=== PATIENT | female | born 1995 | race Caucasian/White ===

== ENCOUNTER → 2018-05-06 10:19 | Outpatient (CLI) | payer OTHER, SELFPAY ==
[2018-05-06 12:35] LABS: Cholesterol 137 mg/dL (200); Glucose 78 mg/dL (74-106); High Density Lipoprotein 36 mg/dL; Thyroid Stim Hormone (TSH) 1.58 uIU/mL (0.358-3.74); Triglycerides 137 mg/dL; Very Low Density Lipoprotein 27 mg/dL (5-40)
== END ==
PROVIDERS: Family Provider Family Medicine; PCP Family Medicine; Visit Provider Family Medicine
DX: E66.9 Obesity, unspecified (principal); Z13.220 Encounter for screening for lipoid disorders
CPT/HCPCS: 36415; 80061; 82947; 84443

== ENCOUNTER 2019-01-01 11:00 | Day surgery (SDC) | payer OTHER, SELFPAY ==
[2018-12-25 17:11] LABS: Hematocrit 39.2 % (37-47); Hemoglobin 12.6 g/dl (12.0-15.0); Mean Corp Hgb Conc 32.1 g/gl (32-36); Mean Corpuscular Hgb 26.8 pg (27.0-32.0); Mean Corpuscular Volume 83.2 fL (81-99); Mean Platelet Vol. 10.3 fl (6.2-12.0); Platelet Count 396 K/mm3 (150-450); RBC Distribution Width CV 14.7 % (11.6-14.6); RBC Distribution Width SD 43.1 fl (35.1-43.9); Red Blood Count 4.71 M/mm3 (4.2-5.4); White Blood Count 9.7 K/mm3 (4.4-11.0)
[2018-12-25 17:13] LABS: Scan Indicated on CBC? Y/N NO
[2018-12-25 17:21] LABS: International Normalized Ratio 1.2; Partial Thromboplast Time 28.6 Seconds (24.1-36.2); Prothrombin Time (Protime)PT. 15.2 SECONDS (11.7-14.9)
--- NOTE | 2018-12-25 19:32 | HP.PCM_ITS ---
- Problem List (1) Dysmenorrhea Status: Acute History and Physical Date of Admission: 01/01/19 Surgical History and Physical Date: 12/25/2018 Name: LEONEL URENA Age: 23 Date of : 1995 Leonel Urena, a 23 year old female 0 0 0 0 0, presents for Diagn ostic laparoscopy, possible surgical treatment of endometriosis (RAKEL) on January 01, 2019 at 1:50. -- Leonel is here today for her pre op appointment. hx Dysmenorrhea, abdominal pain with mild improvement on OCP. Patient states that she had PAT phone call from the hospital this morning she will plan to have labs done after this appointment. Consents reviewed and signed. MEDICATIONS HISTORY: Current medications prescribed by our practice are: 1. Sprintec (28) 0.25 mg-35 mcg tablet, 1 tab PO daily ALLERGIES: No Known Drug Allergies Infections - vaccinated for chicken pox, unsure about HPV vaccine Illnesses - none Accidents - None Hospitalizations - see surgery Review of Systems: GENERAL - Denies fever, or chills SKIN - Denies skin changes EYES - wears eye glasses EARS - Denies difficulty hearing NOSE - Denies nasal congestion or bleeding MOUTH - Denies sore throat or difficulty swallowing NECK - Denies pain or swelling RESPIRATORY - Denies shortness of breath or wheezing CARDIOVASCULAR - Denies palpitations or chest pain GASTROINTESTINAL - Denies nausea, vomiting, diarrhea, constipation GENITOURINARY - Denies dysuria, frequency of urination, incontinence of urine MUSCULOSKELETAL - Denies joint or muscle pain NEUROLOGICAL - Denies localized numbness or weakness PSYCHIATRIC - Denies depression or anxiety ENDOCRINE - Denies heat or cold intolerance, weight loss or gain HEMATO-IMMUNOLOGIC - Denies excesive bleeding with cuts SOCIAL HISTORY: Alcohol Use - drinks occasionally Smoking - denies smoking Diet - no special diet Lifestyle - moderate stress lifestyle Exercise - none Seat Belt Use - always Employer - [employer] Illicit Drug Use - denies use of street drugs Sexual Activity - single sexual partner Residence - lives with parents Control - condoms, oral OCP FAMILY HISTORY: Breast cancer - [facility], [facility] MENSTRUAL HISTORY: LMP Known?- DefiniteAmount/Duration - 5-7, Regularity - regular, Frequency - monthly days, LMP - 12/08/18, Age Onset Menarche - 11 PAST PREGNANCIES: Total Pregnancies - 0; Full Term Pregnancies - 0; Premature - 0; Abortions, Induced - 0; Abortions, Spontaneous - 0; Ectopics - 0; Multiple Births - 0; Living Children - 0 SURGICAL HISTORY: 1. reconstructive ankle surgery 2018 ; - 2. bunion 2009 (R) ; - 3. bunion (L) 2014 ; - 4. adnoidectomy ; - PHYSICAL EXAM BP- 108/70 Sitting, Right arm, large cuff Temp- 97.4 Taken Orally Weight- 216.00558 lbs Height- 67.25 inch BMI:33.65 CONSTITUTIONAL - NAD, well nourished, and well developed, NAD, well nourished and and well developed SKIN - No rash, lesions, or ulcers, No rash, lesions and or ulcers HEENT - normocephalic, atraumatic, sclerae anicteric, normocephalic, atraumatic and sclerae anicteric LUNGS - normal respiratory rate and rhythm and normal respiratory rate and rhythm CARDIAC - normal heart sounds and physiologic rhythm ABDOMEN - Without hepatosplenomegaly, distention, masses, rebound, or guarding; normal bowel sounds; no hernias, Without hepatosplenomegaly, distention, masses, rebound and or guarding; normal bowel sounds; no hernias EXTREMITIES - No edema or calf tenderness and No edema or calf tenderness NEUROLOGICAL - normal gait, normal balance, normal motor, normal gait, normal balance and normal motor PSYCHIATRIC - A and O to time, place, person, mood and affect, A and O to time, place, person and mood and affect External Genitial Vagina - non-tender without lesions Urethra/Urethral Meatus - non-tender Bladder - non-tender Vagina - vaginal barrios are pink and moist without loss of rugae and no evidence of atropy Cervix - without cervical motion tenderness and has normal size and features without evident lesions Uterus - 5-6 cm in size, mobile and nontender Adnexa - clear without massess or tenderness PLAN BY DIAGNOSIS: 1. Dysmenorrhea, Unspecified and Pelvic And Perineal Pain Plan for diagnostic laparoscopy, surgical endometriosis treatment as indicated Surgical r/b/i/a reviewed, pt desires to proceed. Preop packet given, discussed prep, anticipated hospitalization and recovery Consents signed and reviewed Pt given opportunity ask questions and questions answered to her satisfaction Preop labs pending - will obtained serum hCG on day of surgery for hx inability to void on demand prior to last procedure
[2019-01-01] VITALS (7 sets, daily range): BP systolic 117–133; BP diastolic 72–94; PULSE 71–92; RESP 16–18; TEMP 36.1–36.9; O2SAT 94–100; BMI 33.0
--- NOTE | 2019-01-01 | MISC_PTH ---
PATIENT: LEONEL ROBLEDO LOC: [facility] [place] U#:[id number] AGE/SX: 23/F ROOM: RE01/01/[address]: Dr. Moon Monet MD : 1995 BED: DIS: 01/01/2019 SPEC #: [id number] RECD: 01/02/19 09:08 STATUS: KAMALJIT JOSH #: [id number] TEDDY: 01/01/19 00:[address]: Moon Cross DEPT: SURGICAL PATHOLOGY RECD BY: Eyal Levin ENTERED: 01/02/19 09:09 [place] [facility] [place]: Dr. Steve Gamez MD Tissues: A - Peritoneum, NOS B - Peritoneum, NOS C - Peritoneum, NOS Procedures: Surgery Specimen Level IV HEADER OPERATION: Diagnostic laparoscopy, fulguration of endometriosis PRE-OP DIAGNOSIS: Pelvic pain, dysmenorrhea TISSUE SUBMITTED: A - Anterior cul-de-sac peritoneum, B - Left uterosacral, C - Left uterosacral nodule MICROSCOPIC DIAGNOSIS A. Anterior cul-de-sac peritoneum, biopsy: Benign fibrofatty tissue with focal chronic inflammation. B. Left uterosacral peritoneum, biopsy: Consistent with endometriosis. See comment. C. Left uterosacral nodule, biopsy: Consistent with endometriosis. See comment. AM:erin 01/05/19 COMMENT B & C. Immunohistochemistry ([id number]) supports the above diagnosis. MICROSCOPIC DESCRIPTION Slides are reviewed. GROSS DESCRIPTION A - Received in fixative is one container labeled with the patient's name and designated anterior cul-de-sac peritoneum. The specimen consists of a piece of milligan soft tissue measuring 1.5 x 1 x 0.1 cm. The specimen is serially sectioned and submitted entirely in one cassette. B - Received in fixative is one container labeled with the patient's name and designated left uterosacral. The specimen consists of two irregular fragments of milligan-pink soft tissue that in aggregate measure 1 x 0.8 x 0.2 cm. The larger piece is bisected. The entire specimen is submitted in one cassette. C - Received in fixative is one container labeled with the patient's name and designated uterosacral nodule. The specimen consists of two irregular fragments of milligan-pink soft tissue that in aggregate measure 1 x 1 x 0.2 cm. The larger piece is bisected. The entire specimen is submitted in one cassette. / FREDI:erin 01/02/19 TC:5 CPT: 43024 x3
--- NOTE | 2019-01-01 | IMM_PTH ---
PATIENT: LEONEL ROBLEDO LOC: [facility] [place] U#:[id number] AGE/SX: 23/F ROOM: RE01/01/[address]: Dr. Moon Monet MD : 1995 BED: DIS: 01/01/2019 SPEC #: [id number] RECD: 01/05/19 12:45 STATUS: KAMALJIT REQ #: [id number] TEDDY: 01/01/19 00:[address]: Moon Cross DEPT: IMMUNOHISTOCHEMISTRY RECD BY: Heather Mccray ENTERED: 01/05/19 12:53 SP TYPE: IMMUNO OTHR DR: Dr. Steve Gamez MD Tissues: B - Peritoneum, NOS C - Peritoneum, NOS Procedures: Calretinin (initial) CK19 (add) Vimentin (add) PHYSICIAN & INSTITUTION [place] [id number] SPECIMEN INFORMATION: Tissue Source: B - Left uterosacral peritoneum, C - Left uterosacral nodule Clinical Info: Pelvic pain, dysmenorrhea Specimen Number: [id number] B & C CPT code: 39783 x2, 96238 x4 METHODOLOGY: Deparaffinized sections of prefer/formalin-fixed tissue or PAP/DQ stained slides are incubated with monoclonal/polyclonal antibodies/oligonucleotide probes. Localization is made via biotin free immunoperoxidase method. Appropriate controls are performed and reacted as expected. Results on target cell population are indicated in the following table: RESULTS: ANTIBODY / CLONE RESULT Block B CALRET (polyclonal) negative CK19 (A53-B/A2.26) positive Vimentin (V9) positive Block C CALRET (polyclonal) negative CK19 (A53-B/A2.26) positive Vimentin (V9) positive These tests were developed and their performance characteristics determined by [facility]. They may not have been cleared or approved by the U.S. Food and Drug Administration. The FDA has determined that such clearance or approval is not necessary. INTERPRETATION: B. Left uterosacral peritoneum: Consistent with endometriosis. C. Left uterosacral nodule: Consistent with endometriosis. AM:erin 01/06/19
[2019-01-01 11:49] LABS: Pregnancy, Serum, hCG Quali. NEGATIVE Negative (0-9 Nonpreg)
[2019-01-01] MEDS: Bupivacaine Mpf 0.5% 30 ML VIAL (15:20)
--- NOTE | 2019-01-01 15:38 | DCINST_ITS ---
- Discharge Diagnoses Current Active Problems: Dysmenorrhea, Endometriosis Reason(s) for Visit for Discharge Instructions: Laparoscopy You will use the following diet at home:: No restrictions Your food should be the consistency of: Regular Discharge Activity: Return to Normal Activity, May not drive while taking narcotic pain medications., May Shower, - - May take a tub bath in 1-2 weeks. No driving for 24-48 hours. Return to work on:: 01/05/19 May resume sexual activity in: - - 2-4 weeks Lifting Restrictions: 10 lb for 2 weeks Call your doctor if your incision/area has: Continuous Slow Oozing, Sudden Increased Bleeding, Increased Pain/ Swelling, Increased Redness Call your doctor if you observe: Fever of 101 or Higher, Inability to urinate, Inability to have a bowel movement, Using more than one pad per hour, Shortness of breath, Chest pain, Calf discomfort, Uncontrolled pain Suture Line Care: Avoid Pulling/Pushing Remove Dressing in (days):: 1 Cleanse incision/area with: Soap & Water Allergies/Adverse Reactions: Allergies No Known Allergies Allergy (Verified 12/25/18 08:54) Medications to take at Discharge Norgestimate-Ethinyl Estradiol [Sprintec 28 Day Tablet] 1 each PO DAILY 12/25/18 Docusate Sodium [Colace] 100 mg PO BID PRN PRN #30 capsule 01/01/19 Ibuprofen 600 mg PO TID PRN #30 tablet 01/01/19 Oxycodone [Oxyir] 5 mg PO Q6H PRN PRN 7 Days #20 tablet 01/01/19 The following prescriptions were given: Oxycodone [Oxyir] 5 mg PO Q6H PRN PRN 7 Days #20 tablet PRN Reason: Severe Pain (6-07/16) Docusate Sodium [Colace] 100 mg PO BID PRN PRN #30 capsule PRN Reason: Pain Ibuprofen 600 mg PO TID PRN #30 tablet PRN Reason: Pain Primary Care Physician: Steve Gamez MD [Primary Care Provider] - Test Results: Test results from this visit will be discussed in further detail at your follow- up appointment, if applicable. Please Follow Up With: Moon Abbott MD When: 2-4 weeks
--- NOTE | 2019-01-01 15:38 | PCM.OPRPT ---
Problem List (1) Dysmenorrhea Status: Acute (2) Endometriosis determined by laparoscopy Status: Acute Comment: Stage II Report of Operation Date of Procedure: 01/01/19 Pre-Operative Diagnosis: Dysmenorrhea Post-Operative Diagnosis: Secondary dysmenorrhea, Endometriosis Surgery/Procedure Performed:: Diagnostic laparoscopy, surgical treatment of endometriosis with peritoneal biopsy Description of Surgical Findings:: Peritoneal endometriosis in the anterior culdesac, left uterosacral and left posterior culdesac as well as nodule at midline of uterosacral ligaments. Ovaries normal appearing. transport driver: Ana Soto Type of Anesthesia:: General, Local Anesthesiologist: Hill Rueda Specimen's removed: 1. left uterosacral peritoneum. 2. right uterosacral peritoneum. 3. anterior culdesac peritoneum Estimated Blood Loss (mL): 50 Fluids Replaced: 1000 ml Description of Procedure: Indications: 23 year old nulligravida with history of dysmenorrhea not alleviated with hormonal contraceptives with plan to undergo diagnostic laparoscopy to rule out endometriosis. Procedural risks, benefits, indications and alternatives were reviewed and she desired to proceed. Procedure: The patient was taken to the operating room and sign in performed. She was placed in the dorsal supine position, induced under general anesthesia and intubated. She was repositioned into dorsal lithotomy, arms tucked at her sides and an examination under anesthesia was performed. Straight catheterization of the bladder performed. The abdomen and perineum were prepped and draped in sterile fashion. The patient was repositioned into high lithotomy and a speculum placed vaginally. The cervix was grasped using a single tooth tenaculum and a Shara cannula placed and secured for uteirne manipulation. The patient was repositioned into low lithotomy and attention turned to the abdomen. 0.5% Bupivicaine was placed at the inferior umbilicus. An infraumbilical incision was made and Veress needle placed with high pressures noted after three attempts, thus entry was performed under laparoscopic guidance confirming entry into the abdominal cavity. The The abdomen was insufflated to 15mmHg. The patient was repositioned into Trendelenberg. Bupivicaine was placed suprapubically and a 5mm port placed. The abdomen and pelvis were inspected with evidence of peritoneal endometriosis in the anterior culdesace, bilateral uterosacral ligaments as well as an endometriotic nodule and the meeting of the uterosacral ligaments in the midline. Filmy adhesions of the sigmoid colon to the pelvic side wall were present as well as thicker adhesions of the ascending colon to the abdominal side wall. Bupivacaine was injected locally in the right and left lower quadrants for TAP block under laparoscopic guidance. Five mm ports were subsequently placed at those sites. Sigmoid adhesions were sharply dissected and released. I then proceeded with resection of the anterior culdesac endometriotic peritoneum using sharp and blunt dissection. In similar fashion the uterosacral peritoneal endometriotic lesions and the midline nodule were also removed with close attention paid to the pathway of the pelvic ureters. The pelvis was irrigated and suctioned. A peritoneal bleed at the site of the midline nodule resection was controlled using electrocoagulation. There was good hemostasis at all resection sites. The abdomen was desufflated, patient given several deep breaths and the ports removed. The incisions were reapproximated with 4-0 monocryl by the VISITING HOUSEKEEPER under my supervision. Additional bupivacaine was administered locally. Steristrips and Opsite dressing were placed on the incisions. The uterine manipulator was removed and cervical tenaculum sites were hemostatic. The procedure was complete. The patient placed into the dorsal supine position, awakened, extubated and transferred to the recovery room without complications. She tolerated the procedure well. - Complications None - Admit VTE Documentation VTE Present on Admission: No VTE Mechan Device Prophylaxis: SCD's
--- NOTE | 2019-01-01 15:45 | OP.PCM_ITS ---
Problem List (1) Dysmenorrhea Status: Acute (2) Endometriosis determined by laparoscopy Status: Acute Comment: Stage II Report of Operation Date of Procedure: 01/01/19 Pre-Operative Diagnosis: Dysmenorrhea Post-Operative Diagnosis: Secondary dysmenorrhea, Endometriosis Surgery/Procedure Performed:: Diagnostic laparoscopy, surgical treatment of e ndometriosis with peritoneal biopsy Description of Surgical Findings:: Peritoneal endometriosis in the anterior culdesac, left uterosacral and left posterior culdesac as well as nodule at midline of uterosacral ligaments. Ovaries normal appearing. conditioner tumbler: Ana Soto Type of Anesthesia:: General, Local Anesthesiologist: Hill Rueda Specimen's removed: 1. left uterosacral peritoneum. 2. right uterosacral peritoneum. 3. anterior culdesac peritoneum Estimated Blood Loss (mL): 50 Fluids Replaced: 1000 ml Description of Procedure: Indications: 23 year old nulligravida with history of dysmenorrhea not alleviated with hormonal contraceptives with plan to undergo diagnostic laparoscopy to rule out endometriosis. Procedural risks, benefits, indications and alternatives were reviewed and she desired to proceed. Procedure: The patient was taken to the operating room and sign in performed. She was placed in the dorsal supine position, induced under general anesthesia and intubated. She was repositioned into dorsal lithotomy, arms tucked at her sides and an examination under anesthesia was performed. Straight catheterization of the bladder performed. The abdomen and perineum were prepped and draped in sterile fashion. The patient was repositioned into high lithotomy and a speculum placed vaginally. The cervix was grasped using a single tooth tenaculum and a Shara cannula placed and secured for uteirne manipulation. The patient was repositioned into low lithotomy and attention turned to the abdomen. 0.5% Bupivicaine was placed at the inferior umbilicus. An infraumbilical incision was made and Veress needle placed with high pressures noted after three attempts, thus entry was performed under laparoscopic guidance confirming entry into the abdominal cavity. The The abdomen was insufflated to 15mmHg. The patient was repositioned into Trendelenberg. Bupivicaine was placed suprapubically and a 5mm port placed. The abdomen and pelvis were inspected with evidence of peritoneal endometriosis in the anterior culdesace, bilateral uterosacral ligaments as well as an endometriotic nodule and the meeting of the uterosacral ligaments in the midline. Filmy adhesions of the sigmoid colon to the pelvic side wall were present as well as thicker adhesions of the ascending colon to the abdominal side wall. Bupivacaine was injected locally in the right and left lower quadrants for TAP block under laparoscopic guidance. Five mm ports were subsequently placed at those sites. Sigmoid adhesions were sharply dissected and released. I then proceeded with resection of the anterior culdesac endometriotic peritoneum using sharp and blunt dissection. In similar fashion the uterosacral peritoneal endometriotic lesions and the midline nodule were also removed with close attention paid to the pathway of the pelvic ureters. The pelvis was irrigated and suctioned. A peritoneal bleed at the site of the midline nodule resection was controlled using electrocoagulation. There was good hemostasis at all resection sites. The abdomen was desufflated, patient given several deep breaths and the ports removed. The incisions were reapproximated with 4-0 monocryl by the WHEEL PRESSER under my supervision. Additional bupivacaine was administered locally. Steristrips and Opsite dressing were placed on the incisions. The uterine manipulator was removed and cervical tenaculum sites were hemostatic. The procedure was complete. The patient placed into the dorsal supine position, awakened, extubated and transferred to the recovery room without complications. She tolerated the procedure well. - Complications None - Admit VTE Documentation VTE Present on Admission: No VTE Mechan Device Prophylaxis: SCD's
[2019-01-01] MEDS: HYDROcodone Bitartrate/Apap 5/325 Tablet PO (16:53)
== END 2019-01-01 18:24 | disposition home or self-care (01) ==
LOC: SDC 11:00 → AC 11:01
PROVIDERS: Anesthesiology; Family Provider Family Medicine; PCP Family Medicine; Referring Provider Obstetrics & Gynecology; Visit Provider Obstetrics & Gynecology
PROC: (CPT 49320; principal; 2019-01-01 12:10)
DX: N80.3 Endometriosis of pelvic peritoneum (principal); N94.6 Dysmenorrhea, unspecified; R10.2 Pelvic and perineal pain
CPT/HCPCS: 00840; 58662; 36415; 84703; 85027; 85610; 85730; 86850; 86900; 88305; 88341; 88342; J7120; J2405

== ENCOUNTER → 2020-04-15 | Outpatient (CLI) | payer OTHER, SELFPAY ==
[2019-01-01 12:01] VITALS: BMI 33.0
[2020-04-22 01:18] LABS: Chlamydia By Nucleic Acid AMP Negative; Gonococcus By Nucleic Acid AMP Negative; HPV Reflexed? NOT INDICATED
== END | disposition home or self-care (01) ==
LOC: LABSPEC 15:35
PROVIDERS: PCP Family Medicine; Visit Provider Obstetrics & Gynecology
DX: Z12.4 Encounter for screening for malignant neoplasm of cervix (principal); Z11.3 Encounter for screening for infections with a predominantly sexual mode of transmission
CPT/HCPCS: 87491; 87591; 88175; G0145

== ENCOUNTER → 2020-11-11 08:03 | Outpatient (CLI) | payer OTHER, SELFPAY ==
[2019-01-01 12:01] VITALS: BMI 33.0
[2020-11-11 10:39] LABS: Absolute Lymphocyte Count 2.83 X10^3/uL (0.83-4.51); Absolute Neutrophil Count 4.3 X10^3/uL (2.0-7.7); Basophil# 0.04 X10^3/uL; Basophil% 0.5 % (0-1); Eosinophil# 0.13 X10^3/uL; Eosinophils% 1.6 % (0-5); Hematocrit 42.1 % (37-47); Hemoglobin 13.6 g/dL (12.0-15.0); Lymphocyte # 2.83 X10^3/ul (4.0); Lymphocyte % 35.6 % (19-41); Mean Corp Hgb Conc 32.3 g/dL (32-36); Mean Corpuscular Hgb 27.4 pg (27.0-32.0); Mean Corpuscular Volume 84.9 fL (81-99); Mean Platelet Vol. 10.2 fl (6.2-12.0); Monocyte# 0.63 X10^3/uL; Monocyte% 7.9 % (0-10); NRBC Flagged by Analyzer 0 % (0-5); Neutrophil # 4.31 X10^3/uL (2.7-7.7); Neutrophil % 54.1 % (47-70); Platelet Count 415 K/mm3 (150-450); RBC Distribution Width CV 13.9 % (11.6-14.6); RBC Distribution Width SD 42.5 fl (35.1-43.9); Red Blood Count 4.96 M/mm3 (4.2-5.4)
[2020-11-11 11:03] LABS: ALB/GLOB Ratio 1.1 RATIO (0.9-2.4); AST(SGOT) 22 U/L (15-37); Alanine Aminotransfer ALT/SGPT 42 U/L (13-56); Albumin, Serum 3.9 g/dL (3.2-5.0); Alkaline Phosphatase 100 U/L (45-117); Anion Gap 6 (5-15); BUN 11 mg/dL (7-18); BUN/Creat Ratio 12.1 RATIO (10-20); Calcium,Total 8.7 mg/dL (8.5-10.1); Chloride 110 mmol/L (98-107); Creatinine, Serum 0.91 mg/dL (0.55-1.02); EST Glomerular Filtration Rate 80 mL/min (>60); Est Glom Filt Rate - Afr Amer 96 mL/min (>60); Globulin 3.6 g/dL (2.2-4.2); Glucose 89 mg/dL (74-106); Magnesium 2.4 mg/dL (1.6-2.6); Potassium 3.7 mmol/L (3.5-5.1); Protein, Total 7.5 g/dL (6.4-8.2); Sodium Level 142 mmol/L (136-145); T4 Free Direct 1.02 ng/dL (0.76-1.46); Thyroid Stim Hormone (TSH) 1.43 uIU/mL (0.358-3.74)
== END ==
PROVIDERS: PCP Family Medicine; Referring Provider Family Medicine; Visit Provider Family Medicine
DX: E04.1 Nontoxic single thyroid nodule (principal); R00.2 Palpitations
CPT/HCPCS: 36415; 80053; 83735; 84439; 84443; 85025

== ENCOUNTER → 2020-11-15 08:19 | Outpatient (CLI) | payer OTHER, SELFPAY ==
[2019-01-01 12:01] VITALS: BMI 33.0
--- NOTE | 2020-11-15 08:21 | US_ITS ---
STUDY: THYROID ULTRASOUND REASON FOR EXAM: Female, 25 years old. Nodule TECHNIQUE: Ultrasound evaluation of the thyroid was performed with real-time and static brito-scale imaging. COMPARISON: None. FINDINGS: RIGHT LOBE: The right lobe of the thyroid gland measures 5.2 cm x 2.2 cm x 1.3 cm. There is a homogeneous echotexture. There is a 2.1 cm x 2.2 cm by 2.1 cm isoechoic solid nodule in the lower pole of the right lobe. Biopsy is recommended. I also suspect a 9 mm x 8 mm x 6 mm hypoechoic nodule in the right posterior deep portion of the right lobe of the thyroid. This may also lie within the right parathyroid gland. LEFT LOBE: The left lobe of the thyroid gland measures 4.5 cm x 1.5 cm x 1.4 cm. There is a homogeneous echotexture. There are no demonstrated solid, cystic or complex lesions. ISTHMUS: The isthmus measures 4 mm. The regional lymph nodes are normal. US/Thyroid IMPRESSION: 2.1 cm x 2.2 cm x 2.1 cm isoechoic solid nodule in the lower pole of the right lobe of the thyroid. Biopsy is recommended. I also suspect a 9 mm x 8 mm x 6 mm hypoechoic nodule in the posterior right lobe of the thyroid. This may also represent a nodule within the right parathyroid gland. Electronically Signed: Lorne Greenberg MD at 9:14 EST , Service support ,
== END ==
PROVIDERS: PCP Family Medicine; Referring Provider Family Medicine; Visit Provider Family Medicine
DX: E04.1 Nontoxic single thyroid nodule (principal)
CPT/HCPCS: 76536

== ENCOUNTER → 2020-12-09 | Outpatient (CLI) | payer OTHER, SELFPAY ==
[2019-01-01 12:01] VITALS: BMI 33.0
--- NOTE | 2020-12-09 08:45 | ASPS_PTH ---
PATIENT: LEONEL ROBLEDO LOC: [facility] U#:[id number] AGE/SX: 25/F ROOM: RE12/09/[address]: Dr. Santana Lebron MD : 1995 BED: DIS: 12/09/2020 SPEC #: [id number] RECD: 12/09/20 17:20 STATUS: KAMALJIT JOSH #: [id number] TEDDY: 12/09/20 08:[address]: Santana Lebron DEPT: CYTOLOGY RECD BY: Isatu Lozano ENTERED: 12/12/20 08:33 SP TYPE: ASPIRATION OTHR DR: Dr. Steve Mirza MD Tissues: Thyroid gland, NOS Procedures: Special Stain Group II Cytology Other HEADER OPERATION: Ultrasound-guided fine needle aspiration right thyroid PRE-OP DIAGNOSIS: Right thyroid nodule TISSUE SUBMITTED: FNA right thyroid x12 slides DIAGNOSIS CYTOLOGY Fine needle aspiration, right thyroid (smears): Adequate for evaluation. Atypia of undetermined significance. Chronic lymphocytic thyroiditis. AM:erin 12/12/2020 COMMENT Case has been reviewed in consultation with Dr. Ontiveros who concurs with the above diagnosis. IDC:SJ CYTOLOGY STUDY Slides are reviewed. CYTOLOGY GROSS Received are 12 smears labeled with the patient's name and designated per the requisition as right thyroid. Submitted for staining. / erin 12/09/20 TC:? CPT: 24592
== END | disposition home or self-care (01) ==
LOC: LABSPEC 12-12 07:56
PROVIDERS: PCP Family Medicine; Visit Provider Surgery
DX: E04.1 Nontoxic single thyroid nodule (principal)
CPT/HCPCS: 88161; 88313

== ENCOUNTER 2021-01-20 09:54 | Day surgery (SDC) | payer OTHER, SELFPAY ==
[2019-01-01 12:01] VITALS: BMI 33.0
--- NOTE | 2021-01-20 | THYROID_PTH ---
PATIENT: LEONEL ROBLEDO [place] [facility] [place][id number] AGE/SX: 25/F ROOM: RE01/20/[address]: Dr. Santana Lebron MD : 1995 BED: DIS: 01/20/2021 SPEC #: [id number] RECD: 01/20/21 12:32 STATUS: KAMALJIT JOSH #: [id number] TEDDY: 01/20/21 00:[address]: Santana Lebron DEPT: SURGICAL PATHOLOGY RECD BY: Heather Mccray ENTERED: 01/20/21 13:07 SP TYPE: THYROID OTHR DR: Dr. Steve Mirza MD Tissues: Thyroid gland, NOS Procedures: Frozen Section (charge) Surgery Specimen Level V HEADER OPERATION: Thyroid lobectomy PRE-OP DIAGNOSIS: Right thyroid nodule TISSUE SUBMITTED: Right lobe of thyroid, frozen section FROZEN SECTION DIAGNOSIS Right lobe of thyroid, lobectomy: Follicular lesion, completely excised. AM:erin 01/20/2021 MICROSCOPIC DIAGNOSIS Right lobe of thyroid, lobectomy: Consistent with follicular adenoma. Colloid nodules. Intrathyroidal parathyroid tissue (1.5 mm). See comment. AM:erin 01/24/2021 COMMENT Immunohistochemistry ([id number]) supports the above diagnosis. Case has been reviewed in consultation with Dr. Ontiveros who concurs with the above diagnosis. IDC:SJ MICROSCOPIC DESCRIPTION Slides are reviewed. GROSS DESCRIPTION Received fresh for frozen section consultation labeled with the patient's name is a specimen designated right lobe of thyroid. The specimen consists of a lobe of thyroid measuring 5.5 x 2.5 x 2 cm and weighing 8.6 gm. The specimen is differentially inked as follows: isthmic margin of resection - yellow, posterior surface - black and inferior surface - blue. Serial sections reveal a centrally located milligan nodule measuring 1.6 x 1.5 x 1 cm. Balance Wheel Motion Inspector sections of the nodule are submitted for frozen section consultation in cassette 1. The remainder of the uninvolved thyroid lobe tissue is reddish-milligan in color and free of mass lesions. The remainder of the nodule is submitted for permanent sections in cassettes 2-4. The remainder of the specimen is submitted in cassettes 5-8. / AM:erin 01/23/21 TC:1 CPT: 94658, 19803
--- NOTE | 2021-01-20 | IMM_PTH ---
PATIENT: LEONEL ROBLEDO LOC: [facility] [place][id number] AGE/SX: 25/F ROOM: RE01/20/[address]: Dr. Santana Lebron MD : 1995 BED: DIS: 01/20/2021 SPEC #: [id number] RECD: 01/24/21 10:56 STATUS: KAMALJIT REQ #: [id number] TEDDY: 01/20/21 00:[address]: Santana Lebron DEPT: IMMUNOHISTOCHEMISTRY RECD BY: Heather Mccray ENTERED: 01/24/21 10:57 SP TYPE: IMMUNO OTHR DR: Dr. Steve Mirza MD Tissues: Thyroid gland, NOS Procedures: HBME (initial) CD56 (add) CK19 (add) GAL-3 (add) CDX2 (add) PHYSICIAN & INSTITUTION [facility] [phone] SPECIMEN INFORMATION: Tissue Source: Right lobe of thyroid Clinical Info: Right thyroid nodule Specimen Number: [id number] #2 CPT code: 38004, 32573 x4 METHODOLOGY: Deparaffinized sections of prefer/formalin-fixed tissue or PAP/DQ stained slides are incubated with monoclonal/polyclonal antibodies/oligonucleotide probes. Localization is made via biotin free immunoperoxidase method. Appropriate controls are performed and reacted as expected. Results on target cell population are indicated in the following table: RESULTS: ANTIBODY / CLONE RESULT Block 2 CDX2 ([id number]) negative HBME1 (HBME-1) positive CK19 (A53-B/A2.26) negative GAL3 (9C4) negative CD56 (123C3.D5) positive These tests were developed and their performance characteristics determined by [facility]. They may not have been cleared or approved by the U.S. Food and Drug Administration. The FDA has determined that such clearance or approval is not necessary. The above immunohistochemical/dualISH markers are ordered and reviewed by the Pathologist. INTERPRETATION: Right lobe of thyroid, lobectomy: Consistent with follicular adenoma. AM:erin 01/26/2021 Case has been reviewed in consultation with Dr. Ontiveros who concurs with the above diagnosis. IDC:[id number]
[2021-01-20 10:13] VITALS: BP 120/82; PULSE 85; RESP 16; TEMP 36.5; O2SAT 100; BMI 35.5
[2021-01-20 10:20] LABS: Internal QC Validated? YES +Cl - CLEAR BKGD; Pregnancy, Urine Negative Negative
[2021-01-20] MEDS: Lactated Ringers 1,000 ML 100 ML IV ×2 (10:36→12:45)
[2021-01-20] MEDS: BUPIVACAINE LIPOSOME/PF 20 ML VIAL OPERA.SITE (11:59)
--- NOTE | 2021-01-20 12:37 | PCM.OPRPT ---
Problem List (1) Uninodular goiter Status: Acute Report of Operation Date of Procedure: 01/20/21 Pre-Operative Diagnosis: Uninodular goiter Post-Operative Diagnosis: Same Surgery/Procedure Performed:: Right-sided thyroid lobectomy Type of Anesthesia:: Local Anesthesiologist: Eduar Lees Specimen's removed: Right thyroid Drains: None Estimated Blood Loss (mL): < 25 cc Fluids Replaced: 1000cc lr Description of Procedure: Patient was brought into the operating room. Placed in the supine position. Under excellent general endotracheal intubation towel roll was placed underneath the shoulder blades and the neck was extended and sterilely prepped and draped in the usual fashion. Local was injected into the neck. Cervical incision was created. Electrocautery was used to create subplatysmal flaps both in and inferior in a cephalad direction. Gelpi retractor was placed in the wound. Midline strap muscles were opened up with electrocautery extended superiorly and inferiorly. I dissected on the right thyroid lobe detaching the strap muscles off of the thyroid gland. I went superiorly first took the superior thyroid vessels down with a harmonic dissector identifying the superior parathyroid I then came down took the middle thyroidal vein down and finally the inferior thyroid vessels all down with a harmonic dissector with good pneumostasis. I rotated the gland from a lateral to medial standpoint taking the thyroid off of the Ruddy's ligaments in this process I identified an extremely small recurrent laryngeal nerve. This was secured laterally and no injury to it. I then took the thyroid gland off of the trachea and transected it on the left side and sent it to pathology for frozen section. Frozen section came back as no signs of papillary thyroid cancer. It was a follicular lesion and the pathologist was favoring an adenoma. I decided that there was no further dissection that needed to be done. I had good pneumostasis I placed the piece of fluffy Surgicel into the wound held pressure reinspected at about 3 minutes and everything looked excellent no signs of any bleeding whatsoever midline strap muscles were then brought together. Local was injected. Subplatysmal flaps were brought together with a 3-0 Vicryl deep dermals with 3-0 Vicryl in a running 4-0 Monocryl Dermabond was applied sterile dressings were applied and the patient tolerated the procedure well. - Admit VTE Documentation VTE Present on Admission: No VTE Mechan Device Prophylaxis: SCD's VTE Pharm Prophylaxis ordered?: No Reason prophylaxis not ordered:: Treatment Not Indicated
--- NOTE | 2021-01-20 12:44 | PCM.DC.GS ---
Discharge Diet: Light diet - advance as tolerated - If you have questions about your diet instructions, please talk to your doctor. Discharge Activity: May Not Drive - for 1 week or while taking narcotic pain medicine. May shower in (days): 1 Lifting Restrictions: 10 pounds Call your doctor if your incision/area has: Continuous Slow Oozing, Sudden Increased Bleeding, Increased Pain/ Swelling, Increased Redness, Foul Smelling Discharge Call your doctor if you observe: Fever of 101 or Higher Suture Line Care: Avoid Pulling/Pushing, Avoid Pinching/Bending Additional Dressing/Incision Instructions:: Change or remove dressing in 4 days. You will have superglue on your incision. You may shower with out any problems. Allergies/Adverse Reactions: Allergies No Known Allergies Allergy (Verified 01/20/21 10:11) Medications to take at Discharge Sertraline HCl [Zoloft] 100 mg PO DAILY 01/13/21 Oxycodone HCl/Acetaminophen [Percocet 5/325] 1 - 2 tablet PO Q4H PRN PRN 5 Days #30 tablet 01/20/21 The following prescriptions were given: Oxycodone HCl/Acetaminophen [Percocet 5/325] 1 - 2 tablet PO Q4H PRN PRN 5 Days #30 tablet PRN Reason: Pain Transmission Status: Sent to [facility] Primary Care Physician: Steve Mirza MD [Primary Care Provider] - Test Results: Test results from this visit will be discussed in further detail at your follow-up appointment, if applicable. Please Follow Up With: Santana Lebron MD - [phone] When: Call to make an appointment to be seen in about 10 days.
[2021-01-20 13:02] VITALS: BP 120/82; BP 134/84; PULSE 78; RESP 16; TEMP 36.6; O2SAT 96
[2021-01-20 13:15] VITALS: BP 120/82; BP 124/94; PULSE 65; RESP 16; O2SAT 98
[2021-01-20 13:30] VITALS: BP 120/82; BP 127/88; PULSE 67; RESP 16; O2SAT 95
[2021-01-20 13:45] VITALS: BP 120/82; BP 130/83; PULSE 71; RESP 16; TEMP 36.3; O2SAT 98
[2021-01-20 14:45] VITALS: BP 115/55; BP 120/82; PULSE 88; RESP 16; TEMP 36.6; O2SAT 95
[2021-01-20] MEDS: Acetaminophen 325 MG Tablet 650 MG PO (14:45)
[2021-01-20] MEDS: oxyCODONE 5 MG Tablet 10 MG PO (14:45)
== END 2021-01-20 15:07 | disposition home or self-care (01) ==
LOC: SDC 09:55 → AC 09:55
PROVIDERS: Anesthesiology; PCP Family Medicine; Referring Provider Surgery; Visit Provider Surgery
PROC: (CPT 60220; principal; 2021-01-20 11:45)
DX: E04.1 Nontoxic single thyroid nodule (principal); Z20.822 Contact with and (suspected) exposure to COVID-19; E11.9 Type 2 diabetes mellitus without complications; F32.9 Major depressive disorder, single episode, unspecified; F41.9 Anxiety disorder, unspecified
CPT/HCPCS: 00320; 60220; 81025; 87426; 88307; 88331; 88341; 88342; C9803; J7120; J2405; J3490

== ENCOUNTER → 2022-02-09 | Outpatient (CLI) | payer OTHER, SELFPAY ==
[2022-02-09 17:28] LABS: Hematocrit 43.5 % (37-47); Hemoglobin 13.8 g/dL (12.0-15.0); Mean Corp Hgb Conc 31.7 g/dL (32-36); Mean Corpuscular Hgb 27.3 pg (27.0-32.0); Mean Corpuscular Volume 86.1 fL (81-99); Mean Platelet Vol. 10.8 fl (6.2-12.0); Platelet Count 408 K/mm3 (150-450); RBC Distribution Width CV 13.6 % (11.6-14.6); RBC Distribution Width SD 42.5 fl (35.1-43.9); Red Blood Count 5.05 M/mm3 (4.2-5.4); White Blood Count 9.8 K/mm3 (4.4-11.0)
[2022-02-09 17:58] LABS: ALB/GLOB Ratio 1.1 RATIO (0.9-2.4); AST(SGOT) 11 U/L (15-37); Alanine Aminotransfer ALT/SGPT 26 U/L (13-56); Albumin, Serum 4.1 g/dL (3.2-5.0); Alkaline Phosphatase 86 U/L (45-117); Anion Gap 6 (5-15); BUN 15 mg/dL (7-18); BUN/Creat Ratio 16.2 RATIO (10-20); Chloride 106 mmol/L (98-107); Creatinine, Serum 0.93 mg/dL (0.55-1.02); EST Glomerular Filtration Rate 77 mL/min (>60); Est Glom Filt Rate - Afr Amer 94 mL/min (>60); Globulin 3.8 g/dL (2.2-4.2); Glucose 106 mg/dL (74-106); Potassium 3.6 mmol/L (3.5-5.1); Protein, Total 7.9 g/dL (6.4-8.2); Sodium Level 139 mmol/L (136-145); Thyroid Stim Hormone (TSH) 2.06 uIU/mL (0.358-3.74)
[2022-02-18 20:08] LABS: Beef <0.10 kU/L (Class 0); Egg, Whole 0.32 kU/L (Class I); Milk (Cow) 0.38 kU/L (Class I); Peanut 0.36 kU/L (Class I); Pork <0.10 kU/L (Class 0); Soybean 0.18 kU/L (Class 0/I)
[2022-02-19 13:36] LABS: Chocolate <0.10 kU/L (Class 0)
== END | disposition home or self-care (01) ==
LOC: MFPLAB 16:22
PROVIDERS: PCP Family Medicine; Referring Provider Family Medicine; Visit Provider Family Medicine
DX: E66.9 Obesity, unspecified (principal); R63.0 Anorexia; Z91.018 Allergy to other foods
CPT/HCPCS: 36415; 80053; 83036; 84443; 85027; 86003; 86005

== ENCOUNTER → 2022-02-16 | Outpatient (CLI) | payer OTHER, SELFPAY ==
[2022-02-19 21:07] LABS: Chlamydia By Nucleic Acid AMP Negative (Negative)
[2022-02-19 21:47] LABS: Gonococcus By Nucleic Acid AMP Negative (Negative)
[2022-02-23 11:26] LABS: HPV Reflexed? NOT INDICATED
== END | disposition home or self-care (01) ==
LOC: LABSPEC 12:27
PROVIDERS: PCP Family Medicine; Visit Provider Obstetrics & Gynecology
DX: Z12.4 Encounter for screening for malignant neoplasm of cervix (principal); Z11.3 Encounter for screening for infections with a predominantly sexual mode of transmission
CPT/HCPCS: 87491; 87591; 88175; G0145

== ENCOUNTER → 2022-06-27 | Outpatient (CLI) | payer OTHER, SELFPAY ==
[2022-06-27 18:19] LABS: ALB/GLOB Ratio 1.1 RATIO (0.9-2.4); AST(SGOT) 14 U/L (15-37); Alanine Aminotransfer ALT/SGPT 18 U/L (13-56); Albumin, Serum 4.2 g/dL (3.2-5.0); Alkaline Phosphatase 90 U/L (45-117); Anion Gap 6 (5-15); BUN 11 mg/dL (7-18); BUN/Creat Ratio 12.9 RATIO (10-20); Calcium,Total 8.9 mg/dL (8.5-10.1); Chloride 107 mmol/L (98-107); Cholesterol 151 mg/dL (200); Creatinine, Serum 0.85 mg/dL (0.55-1.02); EST Glomerular Filtration Rate 85 mL/min (>60); Est Glom Filt Rate - Afr Amer 103 mL/min (>60); Globulin 3.8 g/dL (2.2-4.2); Glucose 93 mg/dL (74-106); High Density Lipoprotein 36 mg/dL; Potassium 3.8 mmol/L (3.5-5.1); Sodium Level 140 mmol/L (136-145); Thyroid Stim Hormone (TSH) 2.21 uIU/mL (0.358-3.74); Triglycerides 191 mg/dL; Very Low Density Lipoprotein 38 mg/dL (5-40)
== END | disposition home or self-care (01) ==
LOC: MFPLAB 16:56
PROVIDERS: PCP Family Medicine; Referring Provider Family Medicine; Visit Provider Family Medicine
DX: R63.0 Anorexia (principal)
CPT/HCPCS: 36415; 80053; 80061; 84443

== ENCOUNTER → 2022-09-20 | Outpatient (CLI) | payer OTHER, SELFPAY ==
--- NOTE | 2022-09-20 15:21 | US_ITS ---
STUDY: THYROID ULTRASOUND REASON FOR EXAM: Female, 27 years old. NODULE TECHNIQUE: Ultrasound evaluation of the thyroid was performed with real-time and static brito-scale imaging. COMPARISON: November 15, 2020 ultrasound thyroid FINDINGS: RIGHT LOBE: Has been removed. LEFT LOBE: The left lobe of the thyroid gland measures 4.3 x 1.7 x 1.6 cm. There is a homogeneous echotexture. There are no demonstrated solid, cystic or complex lesions. ISTHMUS: The isthmus measures 3 . The regional lymph nodes are normal. US/Thyroid IMPRESSION: Interval right-sided thyroidectomy. Homogeneous-appearing left thyroid lobe. Electronically Signed: Ness Moreno MD at 17:44 EST Reading Location ID and State: [facility] / [place] Tel , Service support ,
== END | disposition home or self-care (01) ==
PROVIDERS: PCP Family Medicine; Referring Provider Family Medicine; Visit Provider Family Medicine
DX: E04.1 Nontoxic single thyroid nodule (principal)
CPT/HCPCS: 76536

== ENCOUNTER → 2023-05-22 | Outpatient (CLI) | payer OTHER, SELFPAY ==
[2023-05-22 11:17] LABS: Anion Gap 3 (5-15); BUN 8 mg/dL (7-18); BUN/Creat Ratio 9.9 RATIO (10-20); Calcium,Total 8.7 mg/dL (8.5-10.1); Chloride 111 mmol/L (98-107); Creatinine, Serum 0.81 mg/dL (0.55-1.02); EST Glomerular Filtration Rate 90 mL/min (>60); Est Glom Filt Rate - Afr Amer 109 mL/min (>60); Glucose 86 mg/dL (74-106); Potassium 3.6 mmol/L (3.5-5.1); Sodium Level 142 mmol/L (136-145); Thyroid Stim Hormone (TSH) 2.21 uIU/mL (0.358-3.74)
== END | disposition home or self-care (01) ==
LOC: MFPLAB 09:03
PROVIDERS: PCP Family Medicine; Visit Provider Nurse Practitioner Family
DX: E04.1 Nontoxic single thyroid nodule (principal)
CPT/HCPCS: 36415; 80048; 84443

== ENCOUNTER → 2023-06-28 | Outpatient (CLI) | payer OTHER, SELFPAY ==
--- NOTE | 2023-06-28 | LES_PTH ---
PATIENT: LEONEL ROBLEDO LOC: [facility] U#:[id number] AGE/SX: 28/F ROOM: RE06/28/[address]: Dr. Steve Mirza MD : 1995 BED: DIS: 06/28/2023 SPEC #: [id number] RECD: 06/28/23 18:00 STATUS: KAMALJIT JOSH #: [id number] TEDDY: 06/28/23 00:[address]: Steve Mirza DEPT: SURGICAL PATHOLOGY RECD BY: Eyal Levin Tissues: Skin of back, NOS Procedures: Surgery Specimen Level IV HEADER OPERATION: Excision skin lesion PRE-OP DIAGNOSIS: Skin lesion TISSUE SUBMITTED: Skin excision back MICROSCOPIC DIAGNOSIS Skin lesion of back, excision: Benign fibrolipomatous polyp. AM:erin 07/02/2023 MICROSCOPIC DESCRIPTION Slides are reviewed. GROSS DESCRIPTION Received is one container labeled with the patient's name and not further designated. The specimen consists of a polypoid piece of milligan-white skin measuring 2.2 x 1.5 x 1.5 cm. The specimen is inked, serially sectioned and submitted entirely in one cassette. / SJ:rg 07/01/2023 TC:1 CPT: 49912
== END | disposition home or self-care (01) ==
PROVIDERS: PCP Family Medicine; Visit Provider Family Medicine
DX: D17.79 Benign lipomatous neoplasm of other sites (principal)
CPT/HCPCS: 88305